=== PATIENT | male | born 1970 | race Two or more races ===

== ENCOUNTER 2018-07-05 15:22 | Emergency (ER) | payer MEDICAID ==
[~2018-07-05] VITALS: Ht 175.3 cm; Wt 111.1 kg
[2018-07-05] MEDS ORDERED: ONDANSETRON HCL 4 MG/2 ML VIAL IV ONE ×3 (16:30→22:15)
[2018-07-05] MEDS ORDERED: MORPHINE SULFATE 4 MG/ML SYR/VIAL IV ONE (16:30)
[2018-07-05] MEDS ORDERED: IOHEXOL 300 MG/ML 100ML BOTTLE IJ ONE (16:31)
[2018-07-05 18:17] LABS: Basophils # (auto) 0 uL; Basophils % (auto) 0.2 % (0.0-2.0); Eosinophils # (auto) 0 uL; Eosinophils % (auto) 0.1 % (0.0-7.0); Hematocrit 46.6 % (41.0-53.0); Hemoglobin 15.5 g/dL (13.5-17.5); Lymphocytes # (auto) 1.7 uL; Lymphocytes % (auto) 8.5 % (10.0-50.0); Mean Corpuscular Hemoglobin 29.6 pg (28.0-32.0); Mean Corpuscular Hgb Conc. 33.2 g/dL (32.0-36.0); Mean Corpuscular Volume 89.3 fL (80.0-100.0); Monocytes # (auto) 0.9 uL; Monocytes % (auto) 4.3 % (0.0-12.0); Neutrophils # (auto) 17.4 uL; Neutrophils % (auto) 86.9 % (37.0-80.0); Platelet Count (auto) 240 10^3/uL (140-450); Red Blood Cells 5.22 10^6/uL (4.5-5.90); Red Cell Distribution Width 14.3 % (11.8-14.3)
[2018-07-05 18:37] LABS: Albumin 3.9 g/dL (3.4-5.0); BUN/Creatinine Ratio 17.4; Calcium 8.6 mg/dL (8.5-10.1); Potassium 3.9 mmol/L (3.5-5.1)
[2018-07-05 18:40] LABS: Bilirubin, Total 0.3 mg/dL (0.2-1.0); Total Protein 7.6 g/dL (6.4-8.2)
[2018-07-05] MEDS ORDERED: HYDROmorphone HCL 2 MG/ML VL IV ONE ×2 (19:45→22:15)
[2018-07-05 20:13] LABS: Urine WBC None Seen /hpf (0 - 3)
[2018-07-05 20:35] LABS: Urine Bacteria NONE SEEN /hpf (None Seen); Urine Blood 2+ /uL (Negative); Urine Mucus FEW (None Seen)
[2018-07-05 20:45] LABS: Urine Specific Gravity > 1.050 (1.001-1.035)
[2018-07-05 22:02] VITALS: BP 119/70
== END 2018-07-05 22:50 | disposition short-term general hospital (02) ==
LOC: ER 15:22
DX: S16.1XXA Strain of muscle, fascia and tendon at neck level, initial encounter (principal); S70.01XA Contusion of right hip, initial encounter; S37.92XA Contusion of unspecified urinary and pelvic organ, initial encounter; M79.18 Myalgia, other site; R10.9 Unspecified abdominal pain; V49.9XXA Car occupant (driver) (passenger) injured in unspecified traffic accident, initial encounter; Y93.89 Activity, other specified; Y92.89 Other specified places as the place of occurrence of the external cause; Y99.8 Other external cause status
CPT/HCPCS: 36415; 70450; 71260; 72100; 72125; 74177; 80053; 81001; 85025; 86850; 86900; 86901; 96374; 96375; 96376; 99285; J1170; J2270; J2405; Q9967